=== PATIENT | male | born 1960 | race Caucasian/White ===

== ENCOUNTER 2017-02-28 10:29 | Day surgery (SDC) ==
[2017-02-28] MEDS ORDERED: DIPRIVAN 20 ML VIAL IVP ONE (13:18)
[2017-02-28] MEDS ORDERED: VERSED ONE (13:18)
[2017-02-28 16:40] VITALS: BP 112/71; TEMP 97.1
--- NOTE | 2017-03-01 09:34 | OP ---
PROCEDURE: COLONOSCOPY TO THE CECUM WITH SNARE POLYPECTOMY. ENDOSCOPIST: Nelsy YANEZ M.D. INDICATION: HISTORY OF ABNORMALIS POLYPS, LAST COLONOSCOPY 2011 INSTRUMENT: [id number]. MEDICATION: PER ANESTHESIA. PROCEDURE: The patient was positioned for colonoscopy. The digital rectal exam was negative. The colonoscope was inserted through the anus and advanced to the cecum. The cecum was identified using the ileocecal valve and the appendiceal orifice as landmarks. The scope was slowly withdrawn through an adequately prepped colon. Small polyp in the cecum removed using cold snare polypectomy. A 5mm polyp at the hepatic flexure removed using snare cautery They remaining exam is essentially normal. Retroflex exam was negative. The patient tolerated the procedure without immediate complication. Withdraw time 11 minutes and 40 seconds. PLAN: 1. Suggest repeat colonoscopy in 5 years CC: Dr. Clay Thacker MD [facility]
== END 2017-02-28 15:00 | disposition home or self-care (01) ==
LOC: SURG 10:29
PROVIDERS: ATTEND Internal Medicine Gastroenterology
DX: Z09 Encounter for follow-up examination after completed treatment for conditions other than malignant neoplasm (principal); Z86.010 Personal history of colon polyps; D12.0 Benign neoplasm of cecum; D12.3 Benign neoplasm of transverse colon